=== PATIENT | male | born 1990 | race Asian ===

== ENCOUNTER 2016-12-22 22:14 | Inpatient (IN) | payer BC, OTHER ==
[~2016-12-22] VITALS: Ht 175.3 cm; Wt 92.8 kg
[2016-12-22] MEDS ORDERED: FENO43CA3 PO (22:50)
[2016-12-22 23:41] LABS: HEMATOCRIT 45.4 % (39.2-51.8); HEMOGLOBIN 15.5 g/dL (13.7-18.0); WHITE BLOOD COUNT 9.9 x10^3/uL (3.4-10)
[2016-12-22 23:53] LABS: BLOOD UREA NITROGEN 14 mg/dL (7-18)
[2016-12-22 23:59] LABS: ASPARTATE AMINO TRANSFERASE 24 U/L (15-37)
[2016-12-23] LABS: IS PT STATUS REG ER OR PRE ER? YES
[2016-12-23] MEDS ORDERED: ENOXAPARIN 40 MG/0.4 ML SQ SCH (00:30)
[2016-12-23] MEDS ORDERED: hydrALAzine 20 MG/ML, 1ML IVPush PRN (00:30)
[2016-12-23 01:05] VITALS: BP 115/55
[2016-12-23] MEDS ORDERED: CEFAZOLIN PMX 1GM/50ML 50 ML IVPB ONE (08:00)
[2016-12-23] MEDS: SODIUM CHLORIDE 0.9% 1,000 ML IV SCH ×3 (08:05→23:40)
[2016-12-23] MEDS ORDERED: FENTANYL PF 100 MCG/2ML ONE (08:35)
[2016-12-23] MEDS ORDERED: CEFAZOLIN PMX 1GM/50ML 50 ML ONE (08:35)
[2016-12-23] MEDS ORDERED: MIDAZOLAM 1 MG/ML, 5ML ONE (08:35)
[2016-12-23] MEDS ORDERED: LIDOCAINE 2%, 20ML ONE (08:35)
[2016-12-23] MEDS ORDERED: CEFAZOLIN 1,000 MG ONE (08:35)
[2016-12-23 13:30] VITALS: BP 136/87
[2016-12-23] MEDS: SODIUM CHLORIDE FLUSH 10ML SYR IVF SCH ×2 (14:06→19:39)
[2016-12-23] MEDS: HYDROcodone/APAP 5/325 TABLET PO PRN ×2 (14:18→19:32)
[2016-12-23] MEDS: CEFAZOLIN PMX 1GM/50ML 50 ML IVPB SCH (17:12)
[2016-12-23 19:04] VITALS: BP 126/74
[2016-12-23 20:07] LABS: DAU SCREEN DISCLAIMER
[2016-12-24] MEDS: CEFAZOLIN PMX 1GM/50ML 50 ML IVPB SCH ×2 (01:03→08:37)
[2016-12-24 01:55] VITALS: BP 131/81
[2016-12-24 07:32] VITALS: BP 148/85
[2016-12-24] MEDS: SODIUM CHLORIDE FLUSH 10ML SYR IVF SCH (08:37)
[2016-12-24] MEDS ORDERED: HYDR-3240 PO (11:32)
[2016-12-24] MEDS ORDERED: PNEUMOCOCCAL 23 VACCINE IM-VACC ONE (12:00)
== END 2016-12-24 14:29 | disposition home or self-care (01) | DRG 244 ==
LOC: ED 23:22 → EDIP 12-23 00:12 → 5SO 12-23 01:02 → OBSVTOIN 12-23 15:38
PROVIDERS: ADMIT Internal Medicine; ATTEND Internal Medicine
PROC: 02H63JZ Insertion of Pacemaker Lead into Right Atrium, Percutaneous Approach (ICD-10-PCS; principal; 2016-12-23)
PROC: 0JH606Z Insertion of Pacemaker, Dual Chamber into Chest Subcutaneous Tissue and Fascia, Open Approach (ICD-10-PCS; 2016-12-23)
PROC: 02HK3JZ Insertion of Pacemaker Lead into Right Ventricle, Percutaneous Approach (ICD-10-PCS; 2016-12-23)
DX: I49.5 Sick sinus syndrome (principal); E78.5 Hyperlipidemia, unspecified; E78.00 Pure hypercholesterolemia, unspecified; Z87.891 Personal history of nicotine dependence
CPT/HCPCS: 33208; 36415; 71010; 80053; 80307; 83735; 84443; 84484; 85025; 85610; 90732; 93005; 93306; 99156; 99157; C1779; C1785; C1892; G0378; J0690; J2250; J3010; J3490; G0479; J7030